=== PATIENT | female | born 1960 | race Caucasian/White ===

== ENCOUNTER 2023-02-15 12:14 | Inpatient (IN) | payer BC ==
[~2023-02-15] VITALS: Ht 175.3 cm; Wt 85.5 kg
[2023-02-15 13:23] LABS: BASOPHILS # (AUTO) 0.1 X10'3 (0-0.2); BASOPHILS % (AUTO) 0.7 % (0-1); EOSINOPHILS # (AUTO) 0.3 X10'3 (0-0.9); EOSINOPHILS % (AUTO) 3.8 % (0-6); HEMATOCRIT 38.3 % (35.0-45.0); HEMOGLOBIN 12.6 g/dl (12.0-16.0); LYMPHOCYTES # (AUTO) 1.8 X10'3 (1.1-4.8); LYMPHOCYTES % (AUTO) 23.1 % (21-51); MEAN CORPUSCULAR HEMOGLOBIN 30.2 PG (27.0-31.0); MEAN CORPUSCULAR VOLUME 91.6 FL (78-98); MEAN PLATELET VOLUME 7.1 FL (7.4-10.4); MONOCYTES # (AUTO) 0.7 X10'3 (0-0.9); MONOCYTES % (AUTO) 9.2 % (2-12); NEUTROPHILS # (AUTO) 4.9 X10'3 (1.8-7.7); NEUTROPHILS % (AUTO) 63.2 % (42-75); PLATELET COUNT 356 X10'3 (140-440); RED BLOOD COUNT 4.18 X10'6 (4.20-5.60); RED CELL DISTRIBUTION WIDTH 13.7 % (11.5-14.5); WHITE BLOOD COUNT 7.8 X10'3 (4.5-11.0)
[2023-02-15 13:50] LABS: ALANINE AMINOTRANSFERASE 266 U/L (12-78); ALBUMIN 3.7 G/DL (3.4-5.0); ALBUMIN/GLOBULIN RATIO 0.9 (1.1-1.5); ALKALINE PHOSPHATASE 46 IU/L (46-116); ANION GAP 6 (8-16); ASPARTATE AMINO TRANSFERASE 214 U/L (10-37); BILIRUBIN,TOTAL 0.5 MG/DL (0.1-1.0); BLOOD UREA NITROGEN 9 MG/DL (7-18); BUN/CREATININE RATIO 11.7 (10.0-20.0); CHLORIDE 104 MMOL/L (99-107); CREATININE 0.77 MG/DL (0.40-0.90); GLUCOSE 106 MG/DL (70-104); LIPASE < 50 U/L (73-393); POTASSIUM 3.7 MMOL/L (3.5-5.1); SODIUM 140 MMOL/L (135-145); TOTAL CARBON DIOXIDE 30.3 MMOL/L (24-32); TOTAL PROTEIN 7.7 G/DL (6.4-8.2); eCRCL 79 ML/MIN; eGFR 76 ML/MIN
[2023-02-15] MEDS ORDERED: iohexol 300mg/ml 100ml inj. ONE ×2 (14:42→16:23)
[2023-02-15 14:47] LABS: BILIRUBIN,URINE NEGATIVE (Neg); CLARITY,URINE SLIGHTLY CLOUDY (Clear); COLOR,URINE YELLOW (Yellow); GLUCOSE, URINE NEGATIVE (Neg); KETONES,URINE NEGATIVE (Neg); LEUKOCYTE ESTERASE ,URINE TRACE (Neg); NITRITES, URINE NEGATIVE (Neg); OCCULT BLOOD,URINE NEGATIVE (Neg); PROTEIN,URINE NEGATIVE (Neg); UROBILINOGEN,URINE 0.2 E.U/dL (0.2-1.0)
[2023-02-15 14:48] LABS: UA COLLECTION TYPE CLN CATCH MIDSTREAM
[2023-02-15 14:54] LABS: BACTERIA,URINE 1+ /HPF (Neg); MUCUS STRANDS MODERATE /LPF (Neg); RBC,URINE 0-2 /HPF (0-2); SQUAMOUS EPITHELIAL CELL,UR FEW /LPF (FEW); WBC,URINE 0-4 /HPF (0-4)
[2023-02-15 15:21] LABS: URINE AMPHETAMINE SCREEN NEGATIVE (Neg); URINE BARBITUATE SCREEN NEGATIVE (Neg); URINE BENZODIAZEPINES SCREEN NEGATIVE (Neg); URINE CANNABINOID SCREEN NEGATIVE (Neg); URINE COCAINE SCREEN NEGATIVE (Neg); URINE METHADONE SCREEN POSITIVE (Neg); URINE OPIATE SCREEN NEGATIVE (Neg); URINE PHENCYCLIDINE SCREEN NEGATIVE (Neg)
[2023-02-15 15:45] LABS: APTT 29 SECONDS (22-32); PROTHROMBIN TIME 10.3 SECONDS (9.0-12.0)
[2023-02-15] MEDS ORDERED: normal saline 1000ML IV soln IVB ONE (15:55)
[2023-02-15] MEDS ORDERED: LEVO100T PO (16:08)
[2023-02-15] MEDS ORDERED: DULO30CA52 PO ×2 (16:08)
[2023-02-15] MEDS ORDERED: LACO100T4 PO (16:08)
[2023-02-15] MEDS ORDERED: LEVE750T PO (16:08)
[2023-02-15] MEDS ORDERED: METH-806 PO (16:08)
[2023-02-15] MEDS ORDERED: CHOL10008 PO (16:10)
[2023-02-15] MEDS ORDERED: LINA290C PO (16:10)
[2023-02-15] MEDS ORDERED: CALC250T2 PO (16:10)
[2023-02-15] MEDS ORDERED: ondansetron/PF 4mg/2ml inj IV PRN (16:15)
[2023-02-15] MEDS ORDERED: magnesium 4gm in 100ml NS 100 ML IV PRN (16:15)
[2023-02-15] MEDS ORDERED: potassium Cl 40MEQ/1/2NS 520ml 520 ML IV PRN (16:15)
[2023-02-15] MEDS: normal saline 1000ml 1,000 ML IV SCH (16:15)
[2023-02-15] MEDS ORDERED: acetaminophen 325mg tablet PO PRN ×2 (16:15)
[2023-02-15] MEDS ORDERED: magnesium Cl slow-release 64mg tablet PO PRN (16:15)
[2023-02-15] MEDS ORDERED: morphine 2 MG/ML inj. syringe IV PRN (16:15)
[2023-02-15] MEDS ORDERED: magnesium 2GM in 50ml NS 50 ML IV PRN (16:15)
[2023-02-15] MEDS ORDERED: potassium Cl 20 mEq SR tablet PO PRN ×2 (16:15)
[2023-02-15] MEDS: metroNIDAZOLE-Flagyl 500mg/NS 100 ML IV SCH ×2 (17:00→17:03)
[2023-02-15] MEDS: CefTRIAXone 2gm/D5W 50ml BAG 50 ML IV SCH (19:06)
[2023-02-15] MEDS: cholecalciferol (vitamin D3) 1,000 unit (25mcg) tablet PO SCH (21:00)
[2023-02-15] MEDS ORDERED: CALCIUM CITRATE PO SCH (21:00)
[2023-02-15] MEDS ORDERED: temazepam 15mg capsule PO PRN (21:00)
[2023-02-15] MEDS: levetiracetam 250mg tablet PO SCH (21:01)
[2023-02-15] MEDS: enoxaparin 40mg/0.4ml syringe SQ SCH (21:04)
[2023-02-15] MEDS: methadone 5mg tablet PO SCH (21:56)
[2023-02-15] MEDS: LACOSAMIDE 50 MG TABLET PO SCH (21:59)
[2023-02-16] VITALS (9 sets, daily range): BP systolic 122–163; BP diastolic 59–89; PULSE 72–94; RESP 14–18; TEMP 97.4–97.9; O2SAT 93–100
[2023-02-16] MEDS: metroNIDAZOLE-Flagyl 500mg/NS 100 ML IV SCH ×2 (05:10→17:49)
[2023-02-16] MEDS: methadone 5mg tablet PO SCH ×2 (07:58→20:41)
[2023-02-16] MEDS: levoTHYROXINE 100mcg tablet PO SCH (07:59)
[2023-02-16] MEDS: normal saline 1000ml 1,000 ML IV SCH ×2 (08:11→20:51)
[2023-02-16] MEDS: LACOSAMIDE 50 MG TABLET PO SCH ×2 (08:43→20:41)
[2023-02-16] MEDS: levetiracetam 250mg tablet PO SCH ×2 (08:43→20:41)
[2023-02-16] MEDS ORDERED: BUPIVAcaine/PF 2.5 mg/ml (0.25%) 30ml vial ONE (10:32)
[2023-02-16] MEDS ORDERED: sevoflurane 250ml liquid IH ONE (10:42)
[2023-02-16] MEDS ORDERED: morphine 4 MG/ML inj SYRINge IV PRN (10:45)
[2023-02-16] MEDS ORDERED: ringers solution, lacted 1,000 ML IV SCH (10:45)
[2023-02-16] MEDS ORDERED: proCHLORperazine 10 MG/2 ml inj IV PRN (10:45)
[2023-02-16] MEDS ORDERED: morphine 2 MG/ML inj. syringe IV PRN (10:45)
[2023-02-16] MEDS ORDERED: meperidine/PF 25mg/ml syringe IV PRN ×3 (10:45)
[2023-02-16] MEDS ORDERED: ondansetron/PF 4mg/2ml inj IV PRN (10:45)
[2023-02-16] MEDS ORDERED: fentaNYL /PF 50mcg/ml 5ml ampule ONE (10:49)
[2023-02-16] MEDS ORDERED: midazolam 1 mg/ML 2ml injection ONE (10:49)
[2023-02-16] MEDS ORDERED: propofol inj 20 ML IV ONE (10:49)
[2023-02-16] MEDS ORDERED: rocuronium 10mg/ml inj IV ONE (10:49)
[2023-02-16] MEDS ORDERED: dexamethasone sod phosphate 4mg/ml inj. ONE (11:05)
[2023-02-16] MEDS ORDERED: ceFAZolin 1000mg inj ONE ×2 (11:31)
[2023-02-16] MEDS ORDERED: ondansetron/PF 4mg/2ml inj ONE (11:53)
[2023-02-16] MEDS ORDERED: neostigmine methylsulfate 1 MG/ML 10ml vial ONE (11:57)
[2023-02-16] MEDS ORDERED: glycopyrrolate 0.2mg/ml inj ONE (11:57)
--- NOTE | 2023-02-16 12:28 | NUR ---
Received from OR via HOSPITAL BED , accompanied by Anesthesiologist and report given by WHITNEY Anesthesiologist. PATIENT A&OX4, DENIES PAIN, V/S WNL, PIV 22G LEFT HAND, DERMABONDED LAPS SITES CLOSED C/D/I TO ABDOMEN. Addendum: 02/16/23 at 1239 by Ermias Walker RN Amended: Links added.
--- NOTE | 2023-02-16 13:18 | NUR ---
PATIENT HAS MET ALL CRITERIA FOR TRANSFER TO ORTHO FLOOR. VSS. DRESSINGS INTACT. BED LOW, CALL LIGHT PRESENT AND 2 RAILS UP. RN PRESENT TO ACCEPT CARE OF PATIENT AND REPORT HAS BEEN CALLED. ALL QUESTIONS ANSWERED TO ACCEPTING RN. Addendum: 02/16/23 at 1322 by Ermias Walker RN Amended: Links added.
[2023-02-16] MEDS ORDERED: ondansetron 4mg rapidly disintigrating tab PO PRN (13:40)
[2023-02-16] MEDS: CefTRIAXone 2gm/D5W 50ml BAG 50 ML IV SCH (17:11)
--- NOTE | 2023-02-16 18:38 | NUR ---
Problems reprioritized. Patient report given, questions answered & plan of care reviewed with MADDI Mccann.
[2023-02-16 20:31] LABS: BASOPHILS % (AUTO) 0.1 % (0-1); EOSINOPHILS % (AUTO) 0 % (0-6); HEMATOCRIT 38.8 % (35.0-45.0); HEMOGLOBIN 12.8 g/dl (12.0-16.0); LYMPHOCYTES # (AUTO) 0.3 X10'3 (1.1-4.8); LYMPHOCYTES % (AUTO) 3.8 % (21-51); MEAN CORPUSCULAR HEMOGLOBIN 30.5 PG (27.0-31.0); MEAN CORPUSCULAR HGB CONC 33.1 g/dL (33.0-36.5); MEAN CORPUSCULAR VOLUME 92.3 FL (78-98); MONOCYTES # (AUTO) 0.1 X10'3 (0-0.9); MONOCYTES % (AUTO) 0.7 % (2-12); NEUTROPHILS # (AUTO) 8.1 X10'3 (1.8-7.7); NEUTROPHILS % (AUTO) 95.4 % (42-75); PLATELET COUNT 370 X10'3 (140-440); RED BLOOD COUNT 4.21 X10'6 (4.20-5.60); RED CELL DISTRIBUTION WIDTH 13.9 % (11.5-14.5); WHITE BLOOD COUNT 8.5 X10'3 (4.5-11.0)
[2023-02-16] MEDS: cholecalciferol (vitamin D3) 1,000 unit (25mcg) tablet PO SCH (20:41)
[2023-02-16] MEDS: enoxaparin 40mg/0.4ml syringe SQ SCH (20:42)
[2023-02-16 22:21] LABS: ALANINE AMINOTRANSFERASE 166 U/L (12-78); ALBUMIN 3.3 G/DL (3.4-5.0); ALBUMIN/GLOBULIN RATIO 0.8 (1.1-1.5); ALKALINE PHOSPHATASE 38 IU/L (46-116); ANION GAP 10 (8-16); ASPARTATE AMINO TRANSFERASE 91 U/L (10-37); BILIRUBIN,TOTAL 0.3 MG/DL (0.1-1.0); BLOOD UREA NITROGEN 7 MG/DL (7-18); BUN/CREATININE RATIO 7.4 (10.0-20.0); CHLORIDE 103 MMOL/L (99-107); CREATININE 0.95 MG/DL (0.40-0.90); GLUCOSE 217 MG/DL (70-104); POTASSIUM 3.6 MMOL/L (3.5-5.1); SODIUM 139 MMOL/L (135-145); TOTAL CARBON DIOXIDE 26.2 MMOL/L (24-32); TOTAL PROTEIN 7.5 G/DL (6.4-8.2); eCRCL 64 ML/MIN; eGFR 60 ML/MIN
[2023-02-17] MEDS ORDERED: HYDROcodone/acetaminophen 5mg/325mg tablet PO PRN (00:20)
[2023-02-17] MEDS: morphine 2 MG/ML inj. syringe IV PRN ×4 (01:30→16:57)
[2023-02-17 01:36] VITALS: BP 133/60; PULSE 70; RESP 17; TEMP 96.8; O2SAT 97
[2023-02-17] MEDS: normal saline 1000ml 1,000 ML IV SCH ×2 (03:03→22:00)
[2023-02-17] MEDS: metroNIDAZOLE-Flagyl 500mg/NS 100 ML IV SCH (05:29)
[2023-02-17 06:00] VITALS: BP 123/63; PULSE 74; RESP 17; TEMP 96.7; O2SAT 96
[2023-02-17 06:03] LABS: BASOPHILS % (AUTO) 0.2 % (0-1); EOSINOPHILS % (AUTO) 0 % (0-6); HEMOGLOBIN 11.7 g/dl (12.0-16.0); LYMPHOCYTES # (AUTO) 0.8 X10'3 (1.1-4.8); LYMPHOCYTES % (AUTO) 8.6 % (21-51); MEAN CORPUSCULAR HEMOGLOBIN 30.5 PG (27.0-31.0); MEAN CORPUSCULAR HGB CONC 33.5 g/dL (33.0-36.5); MEAN PLATELET VOLUME 7.4 FL (7.4-10.4); MONOCYTES # (AUTO) 0.8 X10'3 (0-0.9); MONOCYTES % (AUTO) 8.4 % (2-12); NEUTROPHILS # (AUTO) 8.1 X10'3 (1.8-7.7); NEUTROPHILS % (AUTO) 82.8 % (42-75); PLATELET COUNT 332 X10'3 (140-440); RED BLOOD COUNT 3.85 X10'6 (4.20-5.60); RED CELL DISTRIBUTION WIDTH 13.4 % (11.5-14.5); WHITE BLOOD COUNT 9.8 X10'3 (4.5-11.0)
[2023-02-17 06:12] LABS: ALANINE AMINOTRANSFERASE 132 U/L (12-78); ALBUMIN 2.8 G/DL (3.4-5.0); ALBUMIN/GLOBULIN RATIO 0.8 (1.1-1.5); ALKALINE PHOSPHATASE 32 IU/L (46-116); ANION GAP 8 (8-16); ASPARTATE AMINO TRANSFERASE 61 U/L (10-37); BILIRUBIN,TOTAL 0.4 MG/DL (0.1-1.0); BLOOD UREA NITROGEN 7 MG/DL (7-18); BUN/CREATININE RATIO 10.1 (10.0-20.0); CHLORIDE 106 MMOL/L (99-107); CREATININE 0.69 MG/DL (0.40-0.90); GLUCOSE 121 MG/DL (70-104); POTASSIUM 3.7 MMOL/L (3.5-5.1); SODIUM 141 MMOL/L (135-145); TOTAL PROTEIN 6.5 G/DL (6.4-8.2); eCRCL 88 ML/MIN; eGFR 86 ML/MIN
[2023-02-17] MEDS: levoTHYROXINE 100mcg tablet PO SCH (07:03)
[2023-02-17] MEDS: methadone 5mg tablet PO SCH ×2 (07:42→19:37)
[2023-02-17] MEDS: levetiracetam 250mg tablet PO SCH ×2 (07:43→19:38)
[2023-02-17] MEDS: LACOSAMIDE 50 MG TABLET PO SCH ×2 (07:43→19:37)
[2023-02-17 10:00] VITALS: BP 110/64; PULSE 77; RESP 18; TEMP 98.2; O2SAT 99
[2023-02-17 13:00] LABS: THYROID STIMULATING HORMONE 0.01 ulU/ml (0.34-4.50)
[2023-02-17] MEDS: CefTRIAXone 2gm/D5W 50ml BAG 50 ML IV SCH (16:58)
[2023-02-17 18:00] VITALS: BP 126/82; PULSE 82; RESP 18; TEMP 97.4; O2SAT 95
[2023-02-17 19:33] VITALS: RESP 18; O2SAT 95
[2023-02-17] MEDS: magnesium hydroxide 30ml (MOM) UD suspension PO SCH (19:36)
[2023-02-17] MEDS: metroNIDAZOLE 500mg tablet PO SCH (19:37)
[2023-02-17] MEDS: cholecalciferol (vitamin D3) 1,000 unit (25mcg) tablet PO SCH (19:39)
[2023-02-17] MEDS: enoxaparin 40mg/0.4ml syringe SQ SCH (19:40)
[2023-02-17 22:00] VITALS: BP 128/67; PULSE 72; RESP 17; TEMP 97.8; O2SAT 99
[2023-02-18 06:00] VITALS: BP 137/68; PULSE 67; RESP 16; TEMP 97.9; O2SAT 97
[2023-02-18 06:08] LABS: MEAN CORPUSCULAR VOLUME 90.9 FL (78-98)
[2023-02-18 06:11] LABS: BASOPHILS % (AUTO) 0.5 % (0-1); EOSINOPHILS # (AUTO) 0.1 X10'3 (0-0.9); EOSINOPHILS % (AUTO) 1.3 % (0-6); HEMATOCRIT 30.8 % (35.0-45.0); HEMOGLOBIN 10.4 g/dl (12.0-16.0); LYMPHOCYTES # (AUTO) 2.4 X10'3 (1.1-4.8); LYMPHOCYTES % (AUTO) 30.3 % (21-51); MEAN CORPUSCULAR HEMOGLOBIN 30.7 PG (27.0-31.0); MEAN CORPUSCULAR HGB CONC 33.8 g/dL (33.0-36.5); MEAN PLATELET VOLUME 6.7 FL (7.4-10.4); MONOCYTES # (AUTO) 0.8 X10'3 (0-0.9); MONOCYTES % (AUTO) 9.9 % (2-12); NEUTROPHILS # (AUTO) 4.5 X10'3 (1.8-7.7); PLATELET COUNT 295 X10'3 (140-440); RED BLOOD COUNT 3.39 X10'6 (4.20-5.60); RED CELL DISTRIBUTION WIDTH 13.6 % (11.5-14.5); WHITE BLOOD COUNT 7.8 X10'3 (4.5-11.0)
--- NOTE | 2023-02-18 06:20 | NUR ---
I have received report from MADDI Kelly and had the opportunity to ask questions and assume patient care. No distress at this time.
[2023-02-18 06:26] LABS: ALANINE AMINOTRANSFERASE 86 U/L (12-78); ALBUMIN 2.8 G/DL (3.4-5.0); ALBUMIN/GLOBULIN RATIO 0.9 (1.1-1.5); ALKALINE PHOSPHATASE 25 IU/L (46-116); ANION GAP 7 (8-16); ASPARTATE AMINO TRANSFERASE 38 U/L (10-37); BILIRUBIN,TOTAL 0.3 MG/DL (0.1-1.0); BLOOD UREA NITROGEN 7 MG/DL (7-18); BUN/CREATININE RATIO 10.3 (10.0-20.0); CALCIUM 7.7 MG/DL (8.5-10.1); CHLORIDE 108 MMOL/L (99-107); CREATININE 0.68 MG/DL (0.40-0.90); GLUCOSE 105 MG/DL (70-104); POTASSIUM 3.4 MMOL/L (3.5-5.1); SODIUM 143 MMOL/L (135-145); TOTAL CARBON DIOXIDE 28.3 MMOL/L (24-32); TOTAL PROTEIN 5.9 G/DL (6.4-8.2); eCRCL 90 ML/MIN; eGFR 88 ML/MIN
--- NOTE | 2023-02-18 06:28 | NUR ---
Problems reprioritized. Patient report given, questions answered & plan of care reviewed with MADDI ROSALES.
[2023-02-18 08:00] VITALS: RESP 16; O2SAT 97
[2023-02-18] MEDS: LACOSAMIDE 50 MG TABLET PO SCH (08:01)
[2023-02-18] MEDS: levetiracetam 250mg tablet PO SCH (08:01)
[2023-02-18] MEDS: levoTHYROXINE 100mcg tablet PO SCH (08:01)
[2023-02-18] MEDS: magnesium hydroxide 30ml (MOM) UD suspension PO SCH (08:01)
[2023-02-18] MEDS: metroNIDAZOLE 500mg tablet PO SCH (08:54)
[2023-02-18] MEDS: methadone 5mg tablet PO SCH (09:24)
--- NOTE | 2023-02-18 11:51 | NUR ---
I have reviewed and agree with interventions, assessments, and documentation by Trina Smith LVN.
--- NOTE | 2023-02-18 12:55 | NUR ---
Dr Dillon visited and stated it's ok to discharge pt today. Dr Stephenson notified.
--- NOTE | 2023-02-18 12:59 | NUR ---
Sent to Dr. Stephenson PAGER ID: [phone] MESSAGE: re: [id number] David Dillon rounded and stated its ok to dc pt today. Thanks, Nicolasa [phone]
[2023-02-18] MEDS ORDERED: CIPR-202 PO (13:29)
[2023-02-18] MEDS ORDERED: HYDR-3965 PO (13:29)
[2023-02-18] MEDS ORDERED: METR-159 PO (13:29)
--- NOTE | 2023-02-18 14:45 | NUR ---
Patient discharged with no distress, alert and oriented x4. Patient accompanied by spouse and drove pt home in private vehicle. IV from the left arm d/c'd, cannula intact. All paperwork/ s/p abd surgery instructions provided and understood. Wheeled down to pavilion. Belongings w/ pt.
== END 2023-02-18 14:45 | disposition home or self-care (01) | DRG 417 ==
LOC: ER 12:15 → ED HOLD 16:19 → ORTHO 4S 02-16 07:25
PROVIDERS: ADMIT Internal Medicine; ATTEND Internal Medicine
PROC: BW211ZZ Computerized Tomography (CT Scan) of Abdomen and Pelvis using Low Osmolar Contrast (ICD-10-PCS; 2023-02-15)
PROC: 0JBB0ZZ Excision of Perineum Subcutaneous Tissue and Fascia, Open Approach (ICD-10-PCS; 2023-02-16)
PROC: 0FT44ZZ Resection of Gallbladder, Percutaneous Endoscopic Approach (ICD-10-PCS; principal; 2023-02-16 10:42)
DX: K80.00 Calculus of gallbladder with acute cholecystitis without obstruction (principal); M72.6 Necrotizing fasciitis; K82.1 Hydrops of gallbladder; K58.0 Irritable bowel syndrome with diarrhea; G47.30 Sleep apnea, unspecified; G89.29 Other chronic pain; M19.90 Unspecified osteoarthritis, unspecified site; Z87.19 Personal history of other diseases of the digestive system; Z90.710 Acquired absence of both cervix and uterus; Z90.49 Acquired absence of other specified parts of digestive tract; Z88.0 Allergy status to penicillin; Z88.2 Allergy status to sulfonamides; Z88.1 Allergy status to other antibiotic agents; Z91.040 Latex allergy status; Z79.891 Long term (current) use of opiate analgesic
CPT/HCPCS: 99285; Z7506; Z7508; 36415; 71045; 74177; 76700; 80053; 80305; 81001; 83690; 84145; 84443; 85025; 85610; 85730; 87040; 87081; 87088; 93005; 97116; 97161; 97530; A4215; A4618; A6402; A7000; G0378; J0690; J0696; J1100; J1650; J2175; J2250; J2270; J2405; J2704; J2710; J3010; J3490; J7030; J7120; Q9967

== ENCOUNTER 2023-10-17 13:46 | Outpatient (CLI) | payer BC ==
[~2023-10-17 13:46] MED LIST: CALC250T2 PO; CHOL10008 PO; DULO30CA52 PO; LACO100T4 PO; LEVE750T PO; LEVO100T PO; LINA290C PO; METH-806 PO; METR-159 PO
== END 2023-10-17 23:59 | disposition home or self-care (01) ==
LOC: MRI 13:46
PROVIDERS: ATTEND Orthopaedic Surgery
DX: S83.232A Complex tear of medial meniscus, current injury, left knee, initial encounter (principal); S83.231A Complex tear of medial meniscus, current injury, right knee, initial encounter; S83.271A Complex tear of lateral meniscus, current injury, right knee, initial encounter; M25.562 Pain in left knee; M94.262 Chondromalacia, left knee; R60.0 Localized edema; X58.XXXA Exposure to other specified factors, initial encounter; Y93.89 Activity, other specified; Y92.89 Other specified places as the place of occurrence of the external cause; Y99.8 Other external cause status
CPT/HCPCS: 73721

== ENCOUNTER → 2023-11-26 | Outpatient (CLI) | payer BC | END | disposition home or self-care (01) | LOC: MRI 14:01 | PROVIDERS: ATTEND Pediatrics Sports Medicine | DX: M51.17 Intervertebral disc disorders with radiculopathy, lumbosacral region (principal); M48.061 Spinal stenosis, lumbar region without neurogenic claudication; M47.26 Other spondylosis with radiculopathy, lumbar region; M51.37 Other intervertebral disc degeneration, lumbosacral region; M46.1 Sacroiliitis, not elsewhere classified; M81.0 Age-related osteoporosis without current pathological fracture | CPT/HCPCS: 72148 ==

== ENCOUNTER 2025-04-08 12:29 | Emergency (ER) | payer BC ==
[~2025-04-08] VITALS: Ht 172.7 cm; Wt 91.2 kg
[~2025-04-08 12:29] MED LIST changes: -CHOL10008 PO; +CHOL25CA2 PO; +LACO100T14 PO; -LACO100T4 PO
[2025-04-08 12:41] VITALS: BP 126/82; PULSE 75; RESP 18; O2SAT 96
--- NOTE | 2025-04-08 13:11 | Physician Documentation ---
History of Present Illness ~ Chief Complaint: Hand pain Stated Complaint: R THUMB PAIN Time Seen by MD: 12:59 Primary Medical Doctor: Scott Lua Kraffert [facility] This is a 64-year-old female with a history of carpal tunnel and regional pain syndrome who presents with four days of pain to her right thumb and 2nd finger extending through her hand to her wrist. Patient reports the pain was most noticeable when trying to peel a piece of fruit. Patient reports no other acute symptoms or concerns and reports no known injury recently though reports she has been using her hands to help herself out of chairs as she has chronic hip pain. Tetanus within 5 years: No Medication Reconciliation Allergies: Coded Allergies: Penicillins (Unverified Allergy, Unknown, 04/08/25) Sulfa (Sulfonamide Antibiotics) (Unverified Allergy, Unknown, 04/08/25) ciprofloxacin (Unverified Allergy, Unknown, 04/08/25) ciprofloxacin HCl (Unverified Allergy, Unknown, 04/08/25) latex (Unverified Allergy, Unknown, 04/08/25) Uncoded Allergies: CEPHALAXIN (Allergy, Severe, tendons swell, 02/15/23) Scheduled Calcium Citrate (Calcium Citrate), 2 TAB PO HS, (Reported) Cholecalciferol (Vitamin D3) (Vitamin D3), 2 CAP PO QPM, (Reported) Duloxetine HCl (Duloxetine HCl), 1 CAP PO QAM, (Reported) Duloxetine HCl (Duloxetine HCl), 2 CAP PO QPM, (Reported) Lacosamide (Lacosamide), 1 TAB PO BID, (Reported) Levetiracetam (Levetiracetam), 1 TAB PO BID, (Reported) Levothyroxine Sodium (Synthroid), 1 TAB PO DAILY, (Reported) Linaclotide (Linzess), 290 MCG PO DAILY@1630, (Reported) Methadone Hcl (Methadone Hcl), 1 TAB PO Q12H, (Reported) Metronidazole* (Flagyl*), 500 MG PO BID Past Medical History Past Medical History: Constipation, Thyroid (unspecified), Arthritis Past Surgical History: colectomy, hysterectomy, orthopedic surgeries, tonsillectomy Patient History: Patient reports no known family medical history. Alcohol Use: None Drug Use: none Review of Systems ROS As stated above in the HPI, otherwise all systems are reviewed and negative. Physical Exam Vital Signs: Temperature: 98.3, Source: Oral, Heart Rate: 75, Respiratory Rate: 18, BP: 126/82, Pulse Oximetry: 96, Weight: 91.200 Oxygen Flow Rate: 0 Physical Exam VITALS: Reviewed and as above. GENERAL: Alert, nontoxic appearing, no apparent distress. RESPIRATORY: No increased work of breathing, no respiratory distress, speaking in full clear sentences CV: Brisk capillary refill to right hand and fingers MUSCULOSKELETAL: Thumb and radial aspect hand slightly swollen as compared to left hand, tenderness extending from base of right wrist through dorsal aspect of the thumb SKIN: No ecchymosis to right hand NEURO: Sensation intact to right hand and fingers Progress Results/Orders Results/Orders Orders - GAMA LEUNG Hand, Complete (3vw Min) (04/08/25 13:09) Ortho Orders (04/08/25 ) Completed Orders - GAMA LEUNG Hand, Complete (3vw Min) (04/08/25 13:09) Vital Signs 04/08/25 04/08/25 12:41 14:19 Temp 98.3 98.3 Pulse 75 Resp 18 B/P (MAP) 126/82 Pulse Ox 96 O2 Flow Rate 0 EKG/XRAY/CT/US/VASC/MRI Bone/Soft Tissue X-Ray (Ext.) : Additional Comment Exam: HAND, COMPLETE (3VW MIN) CLINICAL INDICATION: RIGHT Hand pain TECHNIQUE: DI HAND, COMPLETE (3VW MIN) Comparison: None FINDINGS/IMPRESSION: : Subtle cortical irregularity of the midpole of the scaphoid. This is felt to most likely represent chronic degenerative change. Nondisplaced fracture is felt to be less likely but not completely excluded. Recommend correlation with point tenderness. Diffuse osteopenia. Degenerative changes of the radiocarpal joint space. Otherwise, no acute fracture or dislocation. Electronically Signed by:EB CEVALLOS MD Date & Time: 04/08/251330 Dictated by: EB CEVALLOS MD Dictation date and time: 04/08/251330 I have reviewed and agree with the radiology report. I have reviewed and interpreted the imaging as: No fracture or dislocation Medical Decision Making Additional information obtaine: N/A Findings This 64-year-old female with a history of carpal tunnel and complex pain syndrome to right wrist presented with pain and swelling to her right thumb e xtending into wrist, imaging of area did not demonstrate evidence of fracture or dislocation however there were some changes to scaphoid noted to be degenerative in nature. Given patient's history of wrist problems and use of hand to frequently lift herself with this is related more likely soft tissue over fracture, changes on x-ray likely chronic. Had a prolonged conversation with the patient about options and with shared decision-making patient will follow up with her orthopedist for further evaluation of her wrist and thumb, patient will additionally follow up with the primary care provider. Patient was placed in a Velcro thumb spica splint for comfort and in shared decision-making with the patient patient will manage pain with [id number] medications including NSAIDs and Tylenol. Patient is otherwise well-appearing and in his reassuring the hand fingers are neurovascularly intact. Patient is appropriate for outpatient follow up. General Diff Dx:Considerations: Include: Abrasion, Contusion, Fracture, Laceration, Neurovascular injury, Sprain Shoulder Diff Dx:Consideration: Unlikely: AC separation, Adhesive capsulitis, Arthritis, Bicipital tendonitis, Calcific tendonitis, Cervical disc disease, Contusion, Dislocation, Fracture-humerus, Fracture-scapula, Fracture-clavicle, GB disease, Hematoma, Impingement syndrome, Myocardial infarction, Neurovascular injury, Open fracture-humerus, Open fracture-scapula, Open fracture-clavicle, Rotator cuff injury, SC dislocatoin, Sprain, Subacromial bursitis, Other Elbow Diff Dx:Considerations: Unlikely: Abrasion, Arthritis, Contustion, DJD, Fracture-humerus, Fracture-radial head, Fracture-radius, Fracture-ulna, Gout, Hematoma, Laceration, Neurovascular injury, Olecranon bursitis, Open fracture, Osteomyelitis, Radial head subluxation, Rheumatoid arthritis, Septic, Sprain, Ulcer, Other Wrist Diff Dx:Considerations: Include: Abrasion, Arthritis, DJD, Gout, Septic, Carpal tunnel snydrome, Contusion, Dislocation, Fracture-carpal, Fracture- radius, Fracture-ulna, Ganglion, Laceration, Neurovascular injury Hand Diff Dx:Considerations: Include: Arthritis, Septic, Sprain, Tenosynovitis; Unlikely: Abrasion, Contusion, DJD, Felon, Fracture-carpal, Fracture-metacarpal, Fracture-phalynx, Fracture-radius, Fracture-ulna, Gout, Hematoma, Herpetic chanelle, Laceration, Neurovascular injury, Open fracture, Paronychia, Rheumatoid arthritis, Subungual hematoma, Volar plate injury, Cellulitis, Malunion, Other Finger Diff Dx:Considerations: Include: Cellulitis, Dislocation, Fracture Departure Time of Disposition: 14:00 Disposition: 01 HOME / SELF CARE / HOMELESS Impression: Primary Impression: Hand pain Qualified Codes: M79.641 - Pain in right hand Condition: Improved Discharge Instructions: Hand Pain Additional Instructions: Please use the provided wrist brace as needed for comfort, use [id number] medications including Tylenol and or ibuprofen for pain as directed by the [id number] packaging. Please follow up with your orthopedist for further evaluation of your hand and thumb. Please also follow up with your primary care provider in the next few days. Please return to the emergency department for any new or worsening concerning symptoms. Referrals: NO PRIMARY CARE PROVIDER (PCP) Education Educated: Patient Educated regarding: diagnosis, treatment, prognosis, need for follow up Signature Scribe Signature: No scribe Attestation: The note accurately reflects work and decisions made by me.HECTOR Arellano 04/08/25 20:04 Parts of this note were created using [employer] voice recognition software program. While efforts were made to correct any mistakes made by this voice recognition software program, nonsensical phrases may remain in this note. In addition, there may be errors and syntax, grammar, content and spelling. GAMA LEUNG Apr 08, 2025 13:11
--- NOTE | 2025-04-08 13:33 | RADIOLOGY REPORT ---
CLINICAL INDICATION: RIGHT Hand pain TECHNIQUE: DI HAND, COMPLETE (3VW MIN) Comparison: None FINDINGS/IMPRESSION: : Subtle cortical irregularity of the midpole of the scaphoid. This is felt to most likely represent chronic degenerative change. Nondisplaced fracture is felt to be less likely but not completely excluded. Recommend correlation with point tenderness. Diffuse osteopenia. Degenerative changes of the radiocarpal joint space. Otherwise, no acute fracture or dislocation.
[2025-04-08 14:19] VITALS: TEMP 98.3
== END 2025-04-08 14:21 | disposition home or self-care (01) ==
LOC: ER 12:30
DX: M79.644 Pain in right finger(s) (principal); G89.29 Other chronic pain; Z88.0 Allergy status to penicillin; Z88.2 Allergy status to sulfonamides; Z88.1 Allergy status to other antibiotic agents; Z90.49 Acquired absence of other specified parts of digestive tract; Z90.710 Acquired absence of both cervix and uterus; Z79.899 Other long term (current) drug therapy; Z91.040 Latex allergy status
CPT/HCPCS: 29125; 73130; 99283; A4565